=== PATIENT | female | born 1955 | race Caucasian/White ===

== ENCOUNTER 2019-02-03 15:42 | Emergency (ER) | payer MEDICARE, BC ==
[2019-02-03 16:11] VITALS: BP 115/79
--- NOTE | 2019-02-03 16:20 | UC ---
Skin Complaint HPI - HPI Summary HPI Summary: 63 yo female presents with wound to right leg. She tells me that about 1 week ago she was hiking in the [place] and scraped her right obrien on a branch and sustained an abrasion here. Part of the abrasion has healed well, but the lower part has become red, swollen, painful, and has been draining a yellow fluid. She has been bandaging the area with band-aids. Unsure date of last tetanus. Denies fever or chills. No hx of MRSA - History of Current Complaint Chief Complaint: UCSkin Time Seen by Provider: 02/03/19 16:20 Stated Complaint: LEG COMPLAINT Hx Obtained From: Patient Onset/Duration: Gradual Onset Onset Severity: Mild Current Severity: Moderate Pain Intensity: 7 Pain Scale Used: 0-10 Numeric - Allergy/Home Medications Allergies/Adverse Reactions: Allergies Allergy/AdvReac Type Severity Reaction Status Date / Time No Known Allergies Allergy Verified 02/03/19 16:11 PMH/Surg Hx/FS Hx/Imm Hx - Additional Past Medical History Additional PMH: None - Surgical History Surgical History: Yes Surgery Procedure, Year, and Place: Hysterectomy. Eye surgery. Breast augmentation - Family History Known Family History: Positive: Non-Contributory - Social History Lives: With Family Alcohol Use: Occasionally Substance Use Type: None Smoking Status (MU): Never Smoked Tobacco Review of Systems All Other Systems Reviewed And Are Negative: No Constitutional: Positive: Negative Skin: Positive: Other - Abrasion right leg Respiratory: Positive: Negative Cardiovascular: Positive: Negative Neurovascular: Positive: Negative Neurological: Positive: Negative Psychological: Positive: Negative Physical Exam - Summary Physical Exam Summary: GENERAL: NAD. WDWN. No pain distress. SKIN: RIGHT OBRIEN: 1.0cm diameter area of mild healing granulation tissue with scant yellow drainage. Mild surrounding erythema and tenderness with edema. No streaking. NECK: Supple. Nontender. No lymphadenopathy. CHEST: No accessory muscle use. Breathing comfortably and in no distress. CV: Pulses intact. Cap refill <2seconds NEURO: Alert. PSYCH: Age appropriate behavior. Triage Information Reviewed: Yes Vital Signs: Initial Vital Signs Temp 97.6 F 02/03/19 16:03 Pulse 62 02/03/19 16:03 Resp 16 02/03/19 16:03 BP 115/79 02/03/19 16:03 Pulse Ox 100 02/03/19 16:03 Vital Signs Reviewed: Yes Course/Dx - Course Course Of Treatment: tdap updated today. Mild wound infection to right leg - will start her with bactroban and keflex. - Diagnoses Provider Diagnosis: Wound infection Discharge ED - Sign-Out/Discharge Documenting (check all that apply): Patient Departure All imaging exams completed and their final reports reviewed: No Studies - Discharge Plan Condition: Stable Disposition: HOME Prescriptions: Cephalexin CAP* [Keflex CAP*] 500 mg PO TID #21 cap Fluconazole 150 MG TAB* [Diflucan 150 MG TAB*] 150 mg PO DAILY #1 tablet Mupirocin 2% OINT* [Bactroban 2 % Oint*] 1 applic TOPICAL DAILY #1 tube Patient Education Materials: Wound Infection (ED) Referrals: Farideh Santana MD [Primary Care Provider] - Additional Instructions: If you develop a fever, shortness of breath, chest pain, new or worsening symptoms - please call your PCP or go to the ED immediately. 1) Change the dressing daily until well healed (likely 5-7 days) - Billing Disposition and Condition Condition: STABLE Disposition: Home
[2019-02-03] MEDS ORDERED: Tetan/Diph/Pertus SYR(Tdap)* 0.5 ML SYR(BOOSTRIX) use SYR IM ONE (16:50)
== END 2019-02-03 17:15 | disposition home or self-care (01) ==
LOC: UCEAST 15:42
DX: S81.811A Laceration without foreign body, right lower leg, initial encounter (principal); L08.9 Local infection of the skin and subcutaneous tissue, unspecified; W26.9XXA Contact with unspecified sharp object(s), initial encounter; Y93.01 Activity, walking, marching and hiking; Y92.9 Unspecified place or not applicable; Z23 Encounter for immunization
CPT/HCPCS: 90471; 90715; 99212; G0463